=== PATIENT | female | born 1985 | race Caucasian/White ===

== ENCOUNTER 2024-11-04 11:47 | Emergency (ER) | payer OTHER, SELFPAY ==
[2024-11-04 11:50] VITALS: BP 137/89
--- NOTE | 2024-11-04 13:24 | ED.GENMED ---
History of Present Illness
General
Chief Complaint: Skin Surface Trauma
Source: patient
Exam Limitations: none
Time Seen by Provider: 11/04/24 12:05
Nursing documentation reviewed up to this point in time: agreed with
History of Present Illness
History of Present Illness:
39 y/o F R hand dominant
here with L ring finger laceration palmar aspect after accidentally cutting it on a nail that wa in the wall
she has normal sensation and strength
bleeding controlled
tetanus 2 years ago
Past History
Past History
ED Past Medical History: None
ED Past Surgical History: None
Social History
Tobacco: Non-smoker
Alcohol: Occasional
Drug: None
Personal:
Living: with family
Review of Systems
Review of Systems
Allergies reviewed?: Yes
All Other Systems: Not applicable
Phy Exam
Physical Exam
Physical Exam:
GENERAL: Alert , in no apparent distress, comfortable at rest
HEAD: NCAT
CV: < 2 sec cap refill finger L ring
NEUROLOGICAL: Alert and oriented, no focal neuro deficits, , 5/5 strength, sensation intact, ambulation slight limp right leg
SKIN: Warm and dry, linear laceration 2 cm to palmar aspect of her 4th finger aong middle phalax
bleeding controlled
subcutenaous
MUSCULOSKELETAL: left ring finger laceration full ROM, sensation intact
PSYCH: Normal and appropriate interaction.
Course
Vital Signs
Initial and Last Documented VS:
Initial Vital Signs
Temp Pulse Resp BP Pulse Ox
37.9 C 100 20 137/89 99
11/04/24 11:50 11/04/24 11:50 11/04/24 11:50 11/04/24 11:50 11/04/24 11:50
Last Documented Vital Signs
Temp Pulse Resp BP Pulse Ox
37.9 C 100 20 137/89 99
11/04/24 11:50 11/04/24 11:50 11/04/24 11:50 11/04/24 11:50 11/04/24 11:50
Procedures
Laceration Closure
Left Fourth Finger(s):
Status of Wound: clean
Size of Wound in cm: 2
Description of Wound Edges: sharp and flap-well vascularized
Preparation: cleaned with saline
Anesthesia: 1% Lidocaine
Revision/Debridement: minor revision
Wound exploration: extensive cleaning of contaminated wound, explored to base- no FB and no tendon involvement
Type of Closure: single layer closure
Skin Closure Material: 5-0 nylon
Number of sutures: 7
MDM/Problems Addressed
Differential Diagnosis Includes:
laceration
MDM/Problems Addressed:
finger laceration on nail
full rom and sensation
bleeding cnotrolled
laceration reparied with sutures
tetanus UTD
lupus, imunosupporessed
given Rx for kefelx just in case
*Critical Care Note
Total Time (30-74mins, 75-104mins- exclusive of procedures): Not Applicable
ED Attending Note
-
Portions of this chart may have been created with voice recognition software.� Occasional wrong word or��sound alike� substitutions may have occurred due to the inherent limitations of voice recognition software.
Discharge Plan
Departure
Patient Disposition: Home (Routine Discharge)
Date of Disposition: 11/04/24
Time of Disposition: 13:44
Patient with high blood pressure during this ER visit?: No
Condition: Good
Covid-19: Not Applicable
Discharge Problem:
Laceration of finger
Instructions: Laceration Repair With Stitches (DC)
Prescriptions:
New
cephalexin 500 mg capsule
500 mg PO TID Qty: 21 0RF
Referrals:
Christian Morelos MD [Family Provider] - Follow up in 10 days (7-10 days for suture removal)
Activity Restrictions/Additional Instructions:
KEEP THE WOUND CLEAN AND DRY FOR 24 HOURS
AFTER THAT YOU CAN GET IT WET IN THE BATH/SHOWER ONCE A DAY AND MAKE SURE IT IS CLEAN AND THERE IS NO DRIED BLOOD ON THE STITCHES
APPLY NEOSPORIN AND A BANDAID
THE STITCHES NEED TO BE REMOVED IN ABOUT 7-10 DAYS, SEE YOUR DOCTOR FOR THIS.
THE LAST DAY BEFORE STITCHES OUT, NO OINTMENT, LEAVE OPEN TO AIR
WATCH FOR SIGNS OF INFECTION AND RETURN NEEDED FOR PAIN, SWELLING, REDNESS, DRAINAGE, BLEEDING.
MOTRIN NEEDED FOR PAIN.
Interventions
Interventions:
*Nursing Disposition Last Done: 11/04/24 13:54
ED-Skin Assessment Last Done: 11/04/24 13:13
Discharge Date and Time
Discharge Date/Time: 11/04/24 13:55
Print Language: MALAY
== END 2024-11-04 13:55 | disposition home or self-care (01) ==
LOC: EMR 11:47
PROVIDERS: EMERGENCY PHYSICIAN Student in an Organized Health Care Education/Training Program; FAMILY PHYSICIAN Family Medicine
DX: S61.225A Laceration with foreign body of left ring finger without damage to nail, initial encounter (principal); W45.0XXA Nail entering through skin, initial encounter; M32.9 Systemic lupus erythematosus, unspecified
CPT/HCPCS: 12041; 99283